=== PATIENT | male | born 1950 ===

== ENCOUNTER → 2018-09-10 | Outpatient (CLI) | payer OTHER ==
--- NOTE | 2018-09-10 11:45 | RAD ---
Pelvis with right hip, 09/10/2018: HISTORY: Hip pain No previous studies are available at this time for comparison purposes. There is severe bony demineralization. There is absence of the right femoral head and neck presumably due to previous trauma with bony resorption of the fracture fragments. The proximal femur is displaced proximally. The intertrochanteric region of the right hip now articulates with the lateral acetabular rim. There is mild degenerative change at the left hip joint. No acute fracture is identified. Numerous radiopacities projected over the lower pelvis near the midline presumably represent bladder calculi. A tube overlying the pelvis at the midline is probably a suprapubic catheter. Clinical correlation is suggested. Degenerative changes are evident in the lower lumbar spine. IMPRESSION: 1. Severe bony demineralization. 2. 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 3. Large bladder calculi. Electronically signed by: Lazarus Norris MD (09/10/2018 11:41 AM) [facility]
== END | disposition home or self-care (01) ==
LOC: PMGORTHO 07:57
PROVIDERS: ATTEND Orthopaedic Surgery Sports Medicine
DX: M84.454A Pathological fracture, pelvis, initial encounter for fracture (principal); M24.351 Pathological dislocation of right hip, not elsewhere classified
CPT/HCPCS: 73502